=== PATIENT | female | born 1970 | race Caucasian/White ===

== ENCOUNTER → 2018-11-28 | Outpatient (CLI) | payer BC | LOC: M.RAD 08:40 | DX: N63.21 Unspecified lump in the left breast, upper outer quadrant (principal); N63.23 Unspecified lump in the left breast, lower outer quadrant ==

== ENCOUNTER 2019-12-21 12:18 | Inpatient (IN) | payer BC ==
[2019-12-21] VITALS (10 sets, daily range): BP systolic 114–132; BP diastolic 69–82
[~2019-12-21] VITALS: Ht 172.7 cm; Wt 54.7 kg
--- NOTE | ~2019-12-21 | CON ---
[address] [address] CONSULTATION Name: BRANDON MASTAKANKSHA ESPARZA Room: [address] ADM IN M.R.#: [id number] Admission: 12/21/19 Attend Phys: Mana Waters Discharge: Date of : 72 Report #: [id number] THIS REPORT FOR: //name// cc: Mercy Ramos MD, Tuongvan T. MD ~ THIS REPORT FOR: //name// CC: Mana Bautista DATE OF SERVICE: 12/22/2019 HISTORY OF PRESENT ILLNESS: A 49-year-old female patient who is difficult to evaluate because of the language barrier, but she indicated that for a long time she had episodes of dizziness associated with nausea and vomiting. They come spontaneously and then they resolve spontaneously. The exact frequency is not clear, but looks like 1 episode after several months. They can last up to a day or so, but again that is also not very clear. She said she has a family history of the same. She came with the same kind of episode. She underwent a CT angiogram of the head and neck in the Emergency Room and that was unremarkable. Head CT was okay. She is on scopolamine patch and she was given some diazepam and has not produced any beneficial effect. No ENT physician comes here. REVIEW OF SYSTEMS: Positive for stress. I tried to get all the records I can. I do not see any history of head injury the best I can tell. She was not verbal when she came in, but now she was able to talk in [place]an reasonably well. A 14-point review of systems was otherwise noncontributory. PAST MEDICAL HISTORY: Positive for multiple episodes like this. FAMILY HISTORY: Noncontributory. SOCIAL HISTORY: She does not drink or smoke. PHYSICAL EXAMINATION: NEUROLOGIC: Limited. She talks, but I cannot tell, but looks like her mentation is intact. She does appear to have a mild nystagmus, but difficult to be certain. She moves all 4 extremities and reflexes and sensations are symmetrical. CARDIAC AND RESPIRATORY: Appear unremarkable. VITAL SIGNS: Blood pressure is 137/76, respirations 17, pulse is 73. LABORATORY DATA: Indicate a white count of 11. IMPRESSION AND PLAN: I am not sure what the patient's symptoms are from. I suspect it is some ENT pathology including Meniere's disease. [place] [address] CONSULTATION Name: AKANKSHA PARSONS Room: [address]#: [id number] Admission: 12/21/19 Attend Phys: Mana Waters Discharge: Date of : 72 Report #: [id number] an MRI with and without contrast, but the patient indicated that she may have metal in her eye. I asked the radiologist to review the CT with me and he does not think there is a metal, but he cannot be certain. Because of that, I held the MRI, but asked them to do skull films on this patient. I did discuss with her that there is going to be a risk. It is not possible to exclude the metal or any complication which can occur from MRI fully. She is agreeable for that and she said she will undergo the MRI if these tests are okay, knowing very well that there is still a small chance that MRI may not exclude everything. We will see what MRI shows. She needs an ENT consult, but no ENT physician comes here. Thank you very much for this referral. By: [id number] Maguire MD /nt
[2019-12-21] MEDS ORDERED: LIPITOR40 MG PO (12:25)
[2019-12-21 13:23] LABS: ABSOLUTE BASOPHILS 0.1 thou/uL (0.0-0.2); ABSOLUTE LYMPHOCYTES 1.5 thou/uL (0.8-5.3); ABSOLUTE MONOCYTES 0.6 thou/uL (0.0-1.2); ABSOLUTE NEUTROPHILS 9.1 thou/uL (1.6-8.1); BASOPHILS 0.7 %; EOSINOPHILS 0.2 %; HEMATOCRIT 41.5 % (37.0-47.0); HEMOGLOBIN 14.3 gm/dL (12.0-15.0); LYMPHOCYTES 13.4 %; MCHC 34.6 g/dL (28.0-37.0); MCV 95.3 fL (80.0-100.0); MONOCYTES 5.7 %; MPV 8.4 fl. (7.2-11.1); NUCLEATED RBCS 0 /100WBC; PLATELET COUNT* 263 thou/uL (150-400); RBC 4.35 mil/uL (4.20-5.00); RDW-CV 12.5 % (10.5-14.5); WBC 11.4 thou/uL (4.0-11.0)
[2019-12-21 13:27] LABS: URINE BILIRUBIN NEGATIVE (Negative); URINE BLOOD NEGATIVE (Negative); URINE CLARITY CLEAR; URINE COLOR YELLOW; URINE GLUCOSE-RANDOM NEGATIVE (Negative); URINE KETONES NEGATIVE (Negative); URINE LEUKOCYTES-REFLEX NEGATIVE (Negative); URINE NITRITE-REFLEX NEGATIVE (Negative); URINE PROTEIN NEGATIVE (Negative); URINE UROBILINOGEN 0.2 E.U./dl (0.2-1.0)
[2019-12-21 13:31] LABS: CALCIUM 8.6 mg/dL (8.5-10.1); CREATININE 0.9 mg/dL (0.6-1.3); POTASSIUM 3.4 mmol/L (3.5-5.1)
[2019-12-21 13:36] LABS: ALBUMIN 4.2 g/dL (3.4-5.0); TOTAL BILIRUBIN 0.4 mg/dL (<0.1-1.0); TOTAL PROTEIN 9.5 g/dL (6.4-8.2)
[2019-12-21 16:13] LABS: AMP/METHAMP Negative (Negative); BARBITURATES Negative (Negative); BENZODIAZEPINES Negative (Negative); COCAINE Negative (Negative); METHADONE Negative (Negative); OPIATES Negative (Negative); PCP Negative (Negative); THC Negative (Negative)
[2019-12-21 16:15] LABS: MAGNESIUM 2.2 mg/dL (1.8-2.4); PHOSPHORUS* 2.2 mg/dL (2.5-4.9)
--- NOTE | 2019-12-21 19:35 | NUR ---
I ASSUMED CARE OF THE PATIENT AT 1645 AN ED ADMISSION. SHE WENT TO CT PRIOR TO ARRIVAL. BED IS IN THE LOW LOCKED POSITION AND CALL LIGHT IS IN REACH. HOURLY ROUNDING IS COMPLETED AND PATIENT NEEDS ARE MET. PAIN IS DENIED. ASSISTED WITH ADMISSION OVER THE PHONE. WE USED THE TELEPHONE [employer] SERVICES TO COMPLETE THE ASSESSMENT AND THE PHYSICAN'S ASSESSMENT. PATIENT STATES THAT IT WAS A VERY QUICK ONSET AND HAS HAPPENED BEFORE. SHE ALSO STATES THAT SHE IS STILL DIZZY. FLUIDS ARE STARTED AND SCOPE PATCH IS PLACED. GARCÍA IN PLACE, SCD'S ON AND FAMILY NOTIFIED. WILL CONTINUE TO MONITOR.
[2019-12-22] VITALS (13 sets, daily range): BP systolic 115–146; BP diastolic 63–79
[2019-12-22 03:53] LABS: HEMATOCRIT 37.5 % (37.0-47.0); HEMOGLOBIN 12.9 gm/dL (12.0-15.0); MCH 32.7 pg (26.0-34.0); MCHC 34.3 g/dL (28.0-37.0); MCV 95.3 fL (80.0-100.0); MPV 7.9 fl. (7.2-11.1); RBC 3.94 mil/uL (4.20-5.00); RDW-CV 12.6 % (10.5-14.5)
[2019-12-22 04:32] LABS: ALBUMIN 3.3 g/dL (3.4-5.0); CALCIUM 7.8 mg/dL (8.5-10.1); CREATININE 0.8 mg/dL (0.6-1.3); MAGNESIUM 2.1 mg/dL (1.8-2.4); POTASSIUM 3.6 mmol/L (3.5-5.1); TOTAL BILIRUBIN 0.4 mg/dL (<0.1-1.0); TOTAL PROTEIN 7.7 g/dL (6.4-8.2)
--- NOTE | 2019-12-22 06:25 | NUR ---
PT. MORE AWAKE THIS A.M., APPROPRIATE. MEXICAN SPEAKING. C/O HEADACHE THROUGHOUT SHIFT, TYLENOL GIVEN PER PRN ORDER WITH SOME RELIEF. 2L N/C. GARCÍA CATHETER IN PLACE. CALL LIGHT IN REACH, WILL CONTINUE TO MONITOR.
--- NOTE | 2019-12-22 09:00 | NUR ---
ASSESSMENT COMPLETE. MRI QUESTIONAIRE COMPLETED WITH [facility]. SPOKE TO KARENA ON PHONE AND UPDATED ON PLAN OF CARE
--- NOTE | 2019-12-22 11:55 | NUR ---
ICU rounds: Tele status, plan to move to room 218. Plan MRI today, all testing has come back negative. Neuro following. Per , anticipate dc in 2-3 days. Spoke with via phone. Pt is korean speaking. A&O. Normally active and independent. No DME. No hx of HH or SNF. Per Pt was complaing of dizziness and nausea on Saturday, threw up a couple of times, normally is healthy. Following.
--- NOTE | 2019-12-22 12:54 | NUR ---
PT TO ROOM 218 VIA WC. PT VOMITED AFTER HAVING INCREASED DIZZINESS WITH MOVEMENT. CALL LIGHT WITHIN REACH. NSR ON MONITOR
--- NOTE | 2019-12-22 16:20 | EKG ---
[place] [address] ELECTROCARDIOGRAM REPORT Name: BRANDON HENNINGAKANKSHA Room: [address] ADM IN .R.#: [id number] Admission: 12/21/19 Attend Phys: Mana shen Sa Discharge: Date of : 72 Date of Service: 12/21/19 1221 Report #: [id number] THIS REPORT FOR: //name// [facility] ED Test Date: 2019-12-21 Test Time: 12:21:34 Pat Name: AKANKSHA HENNING Department: Room: [address] Gender: F Jack Tamp Operator: MS : 1970 Requested By: Ashli Ricketts Order Number: [id number] Nilda MD: Elliot Pinto Measurements Intervals [place] Rate: 88 P: 73 ID: [id number] QRS: 51 QRSD: 89 T: 30 QT: 380 QTc: 460 Interpretive Statements Sinus rhythm Prolonged ID interval Low voltage, extremity leads Anteroseptal infarct, age indeterminate possible No previous ECG available for comparison Electronically Signed On 12-22-2019 16:18:30 CDT by Elliot Pinto [email or web address] <ELECTRONICALLY SIGNED> By: Elliot Pinto MD, [facility] 12/22/19 1618 1221 1221 Elliot Pinto MD, [facility] /EPI
--- NOTE | 2019-12-22 16:31 | NUR ---
PT RESTING IN BED THROUGHTOUT SHIFT. PT TRANSFERRED TO TELE UNIT VIA . PT VOMITED FROM THE MOVEMENT. PT CONTINUES TO REPORT HEADACE,PHOTOPHOBIA AND DIZZINESS THAT IS IMPROVED FROM YESTERDAY. TOLERATING MINIMAL PO. SKULL XRAY PERFORMED TO R/O METALLIC OBJECTS PRIOR TO MRI BEING ORDERED PER NEURO. SHOW HOST/HOSTESS PHONE USED TO COMMUNICATE BEYOND BASIC NEEDS. GARCÍA CATH DRAINING CLEAR YELLOW URINE. SPOKE TO ON PHONE AND UPDATED ON PLAN OF CARE.
--- NOTE | 2019-12-22 18:24 | NUR ---
PT BACK FROM MRI. RESULTS SHOW ACUTE CVA. DR WONG AND DR KAREEN THOMASON. NIH SCORE 0-DONE USING [employer] RADIOLOGIC TECHNOLOGY INSTRUCTOR
--- NOTE | 2019-12-22 18:50 | NUR ---
SPOKE TO DR WONG WHO REQUESTS PT BE TRANSFERRED TO FACILITY THAT HAS NEUROSURGERY AVAILABLE. CALLED [facility] TRANSFER TEAM. PAPERWORK FAXED
--- NOTE | 2019-12-22 22:33 | NUR ---
ASSUMED PT CARE AT 1915. NURSING ASSESSMENT COMPLETED AT START OF SHIFT. VSS. NIH SCORE=0. HOURLY ROUNDING COMPLETED. SPACE AND MISSILE OPERATIONS IN PLACE, TRACING SR. HOURLY ROUNDING COMPLETED. PT C/O OF DIZZINESS AND HEADACHE THIS SHIFT. PT TRANSFERED TO [facility] ICU RM 253. REPORT GIVEN TO FAROOQ WOODSON. PT LEFT UNIT VIA [facility] AT 1781.
== END 2019-12-22 22:30 | disposition short-term general hospital (02) | DRG 66 ==
LOC: M.ERS 12:18 → M.2W 15:19 → M.TBA-ER 15:19 → M.ICU 16:26 → M.2W 12-22 12:20
PROVIDERS: Personal Emergency Response Attendant; ADMIT Family Medicine
DX: I63.9 Cerebral infarction, unspecified (principal); E87.6 Hypokalemia; E88.09 Other disorders of plasma-protein metabolism, not elsewhere classified; Z79.899 Other long term (current) drug therapy

== ENCOUNTER → 2021-03-14 | Outpatient (CLI) | payer OTHER ==
[~2021-03-14] MED LIST: LIPITOR40 MG PO
== END ==
LOC: M.RAD 03-13 11:50
PROVIDERS: ATTEND Nurse Practitioner Family
DX: Z12.31 Encounter for screening mammogram for malignant neoplasm of breast (principal); R22.2 Localized swelling, mass and lump, trunk